=== PATIENT | male | born 1950 | race Caucasian/White ===

== ENCOUNTER 2025-07-05 14:13 | Emergency (ER) | payer OTHER ==
[~2025-07-05] VITALS: Ht 175.3 cm; Wt 82.0 kg
[2025-07-05 14:24] VITALS: TEMP 36.7; O2SAT 96
[2025-07-05] MEDS: VANCOMYCIN 1G PREMIX 200 ML IV ONE (15:00)
[2025-07-05] MEDS: SODIUM CHLORIDE 0.9% 1,000 ML IV ONE (15:09)
[2025-07-05 15:21] LABS: BASOPHILS % 0.2 % (0.0-2.0); EOSINOPHILS % 0.5 % (0.0-5.0); HEMATOCRIT. 35.3 % (42.0-52.0); HEMOGLOBIN. 12.0 g/dL (14.0-18.0); LYMPHOCYTES % 9.5 % (20.0-50.0); MEAN PLATELET VOLUME 9.5 fl (7.4-10.4); MONOCYTES % 8.4 % (2.0-8.0); NEUTROPHILS % 81.4 % (40.0-76.0); PLATELET 99 x1000/uL (130-400); RED BLOOD CELL COUNT 3.50 mill/uL (4.7-6.1); RED CELL DISTRIBUTION WIDTH 14.9 % (11.6-14.6)
[2025-07-05] MEDS: SODIUM CHLORIDE 0.9% 500 ML IV ONE (15:31)
[2025-07-05] MEDS: PIPERACILLIN/TAZO 3.375G/50ML 50 ML IV ONE (15:32)
[2025-07-05 15:35] LABS: CREATININE 1.1 mg/dL (0.6-1.3); TROPONIN I HIGH SENSITIVITY 10 ng/L (3.0-53); UREA NITROGEN BLOOD 15 mg/dL (9-23)
[2025-07-05 15:37] LABS: ASPARTATE AMINOTRANSFERASE 17 IU/L (<34)
[2025-07-05 15:38] LABS: BILIRUBIN DIRECT 0.5 mg/dL (<=3.0); BILIRUBIN TOTAL 1.6 mg/dL (0.1-1.0); PROTEIN TOTAL 4.4 g/dL (6.0-8.3)
[2025-07-05 15:44] LABS: INR 1.1
[2025-07-05] MEDS: ENOXAPARIN 80MG/0.8ML SYR SUBCUT ONE (17:34)
[2025-07-05 18:12] VITALS: BP 131/82; PULSE 62; RESP 17; O2SAT 100
[2025-07-05] MEDS ORDERED: IOHEXOL-350 100 ML BOTTLE ONE (20:44)
== END 2025-07-05 18:49 | disposition short-term general hospital (02) ==
LOC: ER 14:32 → CANBEDREQ 16:37 → ER 18:49
DX: A41.9 Sepsis, unspecified organism (principal); C90.00 Multiple myeloma not having achieved remission; R07.9 Chest pain, unspecified; Z79.899 Other long term (current) drug therapy; Z98.890 Other specified postprocedural states
CPT/HCPCS: 99291; 71275; 96365; 96366; 71045; 80076; 80048; 83605; 83735; 85025; 85379; 85610; 86850; 86900; 86901; 87040; 84484; 36415; 84145; 70450; 93005; 96368; Q9967; J2543; J3373; A4606